=== PATIENT | male | born 1960 | race Caucasian/White ===

== ENCOUNTER 2020-10-26 05:33 | Day surgery (SDC) | payer BC ==
[2020-10-20 16:43] LABS: ALBUMIN/GLOBULIN RATIO 1.1 (1.1-1.5); ALKALINE PHOSPHATASE 71 IU/L (46-116); BLOOD UREA NITROGEN 19 MG/DL (7-18); BUN/CREATININE RATIO 24.4 (5.4-32.0); CALCIUM 8.9 MG/DL (8.5-10.1); CHLORIDE 106 MMOL/L (99-107); CREATININE 0.78 MG/DL (0.60-1.10); PRE OP ALT 40 U/L (30-65); PRE OP ANION GAP 10 (8-16); PRE OP AST 22 U/L (10-37); PRE OP BILIRUB, TOTAL 0.7 MG/DL (0.0-1.0); PRE OP GLUCOSE 89 MG/DL (70-104); PRE OP SODIUM 142 MMOL/L (135-145); TOTAL CARBON DIOXIDE 25.9 MMOL/L (24-32); TOTAL PROTEIN 7.8 G/DL (6.4-8.2); eGFR > 90 ML/MIN
[2020-10-20 17:47] LABS: BASOPHILS % (AUTO) 0.6 % (0-1); EOSINOPHILS % (AUTO) 0.5 % (0-6); MEAN CORPUSCULAR HEMOGLOBIN 33.6 PG (27.0-31.0); MEAN CORPUSCULAR VOLUME 93.3 FL (78-98); MEAN PLATELET VOLUME 9.1 FL (7.4-10.4); NEUTROPHILS # (AUTO) 5.1 X10'3 (1.8-7.7); NEUTROPHILS % (AUTO) 73.9 % (42-75); PRE OP HEMATOCRIT 44.5 % (42.0-52.0); PRE OP PLATELET COUNT 166 X10'3 (140-440); RED BLOOD COUNT 4.77 X10'6 (4.70-6.10); RED CELL DISTRIBUTION WIDTH 13.7 % (11.5-14.5)
[2020-10-20 17:48] LABS: LYMPHOCYTES # (AUTO) 1.3 X10'3 (1.1-4.8); MONOCYTES # (AUTO) 0.5 X10'3 (0-0.9)
[2020-10-20 17:52] LABS: PLATELET ESTIMATE NORMAL; SPHEROCYTES 2+
[2020-10-20 17:53] LABS: POLYCHROMASIA FEW
[2020-10-20 17:55] LABS: ANISOCYTOSIS FEW
[2020-10-26] VITALS (17 sets, daily range): BP systolic 119–160; BP diastolic 70–92
[~2020-10-26] VITALS: Ht 170.2 cm; Wt 106.8 kg
[~2020-10-26 05:33] MED LIST: MELO-102 PO; acetaminophen 325mg tablet PO ONE; cefazolin/dext.iso 2gm/100ml IV ONE; celeCOXIB 100mg capsule PO ONE; famotidine 20mg tablet PO ONE; gabapentin 300mg capsule PO ONE; metoclopramide 5 mg/ml inj IV ONE; oxyCODONE SR 10mg (sust. release) tab -2 tabs (20mg) PO ONE; ringers solution, lacted 1,000 ML IV SCH; tranexamic acid 1gm/0.7% sal. 100 ML IV ONE; vancomycin 1,500 MG in NS 300ml IV soln IV ONE
[2020-10-26] MEDS ORDERED: acetaminophen 325mg tablet PO PRN (06:50)
[2020-10-26] MEDS ORDERED: magnesium hydroxide 30ml (MOM) UD suspension PO PRN (06:50)
[2020-10-26] MEDS ORDERED: HYDROmorphone inj. 0.5 MG/0.5 ML DISP.SYRIN IV PRN (06:50)
[2020-10-26] MEDS ORDERED: oxyCODONE/APAP 10/325mg tablet PO PRN (06:50)
[2020-10-26] MEDS ORDERED: diphenhydrAMINE 25mg capsule PO PRN ×2 (06:50)
[2020-10-26] MEDS ORDERED: ondansetron/PF 4mg/2ml inj IV PRN ×2 (06:50→08:55)
[2020-10-26] MEDS ORDERED: bisacodyl 10mg suppository rectal RC PRN (06:50)
[2020-10-26] MEDS ORDERED: HYDROmorphone 1 mg/ml syringe IV PRN (06:50)
[2020-10-26] MEDS ORDERED: ketorolac trometh. 30mg/ml inj. ONE (07:42)
[2020-10-26] MEDS ORDERED: cloNIDine hcl/PF 100mcg/ml inj ONE (07:42)
[2020-10-26] MEDS ORDERED: epiNEPHrine 1 mg/ml inj ONE (07:42)
[2020-10-26] MEDS ORDERED: ROPIVAcaine 0.5% (5mg/ml) 30ml vial ONE ×2 (07:43→09:55)
[2020-10-26] MEDS ORDERED: vancomycin 1,000mg inj ONE (07:43)
[2020-10-26] MEDS ORDERED: fentaNYL/PF 50MCG/1 ML 2ML syringe ONE (08:10)
[2020-10-26] MEDS ORDERED: MIDAZolam 1 MG/ML 5ML VIAL ONE (08:10)
[2020-10-26] MEDS: aspirin 325mg tablet PO SCH (08:30)
[2020-10-26] MEDS ORDERED: HYDROmorphone/PF 0.2 MG/ML SYRINGE IV PRN ×2 (08:55)
[2020-10-26] MEDS ORDERED: ringers solution, lacted 1,000 ML IV SCH (08:55)
[2020-10-26] MEDS ORDERED: labetalol 20mg/4ml (5mg/ml) syringe IV PRN (08:55)
[2020-10-26] MEDS ORDERED: proCHLORperazine 10 MG/2 ml inj IV PRN (08:55)
[2020-10-26] MEDS ORDERED: acetaminophen 1,000mg/100ml IV 100 ML IV PRN (08:55)
[2020-10-26] MEDS ORDERED: meperidine/PF 25mg/ml syringe IV PRN ×3 (08:55)
[2020-10-26] MEDS ORDERED: hydrALAZINE 20mg/ml inj. IV PRN (08:55)
[2020-10-26] MEDS ORDERED: ROPIVAcaine 0.2% (10 MG/5 ML) BOLUS INJECTION ADDCANAL PRN (09:00)
[2020-10-26] MEDS ORDERED: propofol inj 20 ML IV ONE ×3 (09:55)
--- NOTE | 2020-10-26 10:21 | NUR ---
Received from OR via BED IN STABLE CONDITION. DERMATOME LEVEL L1 , accompanied by Anesthesiologist and COW RIDER report given by Anesthesiolreji. Addendum: 10/26/20 at 1039 by Radha Olivo RN Amended: Links added.
[2020-10-26] MEDS: ROPIVAcaine 0.2%/PF PUMP/bolus 545 ML ADDCANAL SCH (10:33)
--- NOTE | 2020-10-26 11:26 | NUR ---
Received patient report from Zoe in recovery.
--- NOTE | 2020-10-26 11:31 | NUR ---
PATIENT TRANSFERRED FROM PACU IN STABLE CONDITION TO ROOM AFTER REPORT GIVEN TO PATIENT TRANSPORTED VIA BED WITH ORDERLYS X2. Addendum: 10/26/20 at 1135 by Radha Olivo RN Amended: Links added.
--- NOTE | 2020-10-26 11:35 | NUR ---
Patient in room ORTH[facility] 4013. I have received report from Dorita De facilities maintenance supervisor/Neuro and had the opportunity to ask questions and assume patient care.
[2020-10-26] MEDS: potassium cl 20mEq in 1/2 NS 1,000 ML IV SCH ×3 (14:07→23:22)
--- NOTE | 2020-10-26 16:14 | NUR ---
Phoned Dr Jony Scruggs, pt's PICCO dressing is 3/4 saturated with blood. Pt stable. No s/sx distress, no c/o. Orders received to change dressing. hand tube bender aware. Will continue to monitor.
--- NOTE | 2020-10-26 18:28 | NUR ---
Problems reprioritized. Patient report given, questions answered & plan of care reviewed with Fatou JOHNSON.
[2020-10-26] MEDS: cefazolin/dext.iso 2gm/100ml 100 ML IV SCH ×2 (18:30→23:20)
--- NOTE | 2020-10-26 18:32 | NUR ---
Received report from Denia.
[2020-10-26] MEDS: multivitamins, therapeutics tablet PO SCH (18:37)
[2020-10-26] MEDS: ascorbic acid 500mg tablet PO SCH (19:40)
[2020-10-26] MEDS ORDERED: sennosides 8.6mg tablet PO SCH (21:00)
[2020-10-26] MEDS: gabapentin 300mg capsule PO SCH (21:11)
--- NOTE | 2020-10-26 21:49 | NUR ---
noted R foot with decreased plantar and dorsiflexsion will monitor, pt can wiggle toes sensation and pulses intact.
[2020-10-27] MEDS: oxyCODONE/APAP 10/325mg tablet PO PRN ×2 (01:35→05:30)
--- NOTE | 2020-10-27 01:35 | NUR ---
R foot back to normal plantar and dorsiflexion.
[2020-10-27 01:48] VITALS: BP 134/77
--- NOTE | 2020-10-27 01:50 | NUR ---
Pt sitting and standing at side wb on R knee.
[2020-10-27 06:00] VITALS: BP 129/84
--- NOTE | 2020-10-27 06:21 | NUR ---
Patient in room ORTHO 4013. I have received report from EDDIE JOHNSON and had the opportunity to ask questions and assume patient care.
--- NOTE | 2020-10-27 06:28 | NUR ---
Report to Alessia JOHNSON.
[2020-10-27 06:43] LABS: BASOPHILS % (AUTO) 0.4 % (0-1); EOSINOPHILS % (AUTO) 0.4 % (0-6); HEMATOCRIT 37.5 % (42.0-52.0); HEMOGLOBIN 13.4 g/dl (14.0-17.9); LYMPHOCYTES # (AUTO) 0.9 X10'3 (1.1-4.8); LYMPHOCYTES % (AUTO) 8.2 % (21-51); MEAN CORPUSCULAR HEMOGLOBIN 33.6 PG (27.0-31.0); MEAN CORPUSCULAR HGB CONC 35.8 g/dL (33.0-36.5); MEAN PLATELET VOLUME 8.7 FL (7.4-10.4); MONOCYTES # (AUTO) 1.2 X10'3 (0-0.9); MONOCYTES % (AUTO) 10.7 % (2-12); NEUTROPHILS % (AUTO) 80.3 % (42-75); PLATELET COUNT 154 X10'3 (140-440); RED BLOOD COUNT 3.98 X10'6 (4.70-6.10); RED CELL DISTRIBUTION WIDTH 13.2 % (11.5-14.5); WHITE BLOOD COUNT 11.2 X10'3 (4.5-11.0)
[2020-10-27] MEDS: potassium cl 20mEq in 1/2 NS 1,000 ML IV SCH (06:50)
[2020-10-27 07:15] LABS: ANION GAP 9 (8-16); CHLORIDE 103 MMOL/L (99-107); POTASSIUM 3.9 MMOL/L (3.5-5.1); SODIUM 136 MMOL/L (135-145); TOTAL CARBON DIOXIDE 24.2 MMOL/L (24-32)
[2020-10-27] MEDS: gabapentin 300mg capsule PO SCH (07:34)
[2020-10-27] MEDS: multivitamins, therapeutics tablet PO SCH (07:34)
[2020-10-27] MEDS: aspirin 325mg tablet PO SCH (07:34)
[2020-10-27] MEDS: ascorbic acid 500mg tablet PO SCH (07:34)
[2020-10-27] MEDS ORDERED: celeCOXIB 100mg capsule PO SCH (08:00)
[2020-10-27] MEDS: ROPIVAcaine 0.2%/PF PUMP/bolus 545 ML ADDCANAL SCH (09:40)
--- NOTE | 2020-10-27 10:17 | NUR ---
Pt discharged [facility] at 1000. Pt belongings sent with pt. Iv removed, pressure bandage applied. All questions reviewed/ answered. Pt discharged in private vehicle with in stable condition
== END 2020-10-27 10:00 | disposition home or self-care (01) ==
LOC: PAS 05:33 → ORTHO 4S 06:47 → PAS 10-27 10:00
PROVIDERS: ATTEND Orthopaedic Surgery
DX: M17.11 Unilateral primary osteoarthritis, right knee (principal); M21.161 Varus deformity, not elsewhere classified, right knee; Z20.822 Contact with and (suspected) exposure to COVID-19; G89.18 Other acute postprocedural pain; E66.9 Obesity, unspecified; Z68.36 Body mass index [BMI] 36.0-36.9, adult; Z79.899 Other long term (current) drug therapy; Z87.891 Personal history of nicotine dependence; Z72.89 Other problems related to lifestyle
CPT/HCPCS: 27447; 36415; 64448; 73560; 76937; 80051; 80053; 82948; 85025; 86885; 86900; 86901; 87081; 97110; 97116; 97161; 97530; C1713; C1776; J0171; J0735; J1885; J2250; J2704; J2765; J2795; J3010; J3370; J7040; J7120; U0003; U0005; 85008; A4215; A6449; A7000; G0378; J3480